=== PATIENT | female | born 1950 | race Caucasian/White ===

== ENCOUNTER 2019-06-27 08:26 | Day surgery (SDC) | payer MEDICARE ==
[~2019-06-27] VITALS: Ht 157.5 cm; Wt 78.7 kg
[~2019-06-27 08:26] MED LIST: Alphagan P5 ML BOTHEYES; DORZOLAMIDE 2%10 ML; Estrace Vagin42.5 GM; Ferrous Sulfat325 M2 PO; METROGEL55 GM; OMEP20ER PO; SERT50 PO; Xalatan2.5 ML RIGHTEYE
== END 2019-06-27 10:29 | disposition home or self-care (01) ==
LOC: ORSCSDS 08:26
PROVIDERS: Internal Medicine Gastroenterology
PROC: 0DB68ZX Excision of Stomach, Via Natural or Artificial Opening Endoscopic, Diagnostic (ICD-10-PCS; principal; 2019-06-27 10:00)
DX: D50.9 Iron deficiency anemia, unspecified (principal); K22.10 Ulcer of esophagus without bleeding; F41.8 Other specified anxiety disorders; E66.9 Obesity, unspecified; Z68.32 Body mass index [BMI] 32.0-32.9, adult; K44.9 Diaphragmatic hernia without obstruction or gangrene; Z79.899 Other long term (current) drug therapy
CPT/HCPCS: 88305; 88342; J2704; J7120

== ENCOUNTER → 2019-08-10 | Outpatient (CLI) | payer MEDICARE | END | disposition home or self-care (01) | LOC: LAB 19:28 → LAB SHORT 19:28 | DX: R30.0 Dysuria (principal) | CPT/HCPCS: 87077; 87086; 87186 ==

== ENCOUNTER → 2024-08-09 | Outpatient (CLI) | payer MEDICARE | LOC: LAB 09:11 → LAB SHORT 09:11 | DX: R39.15 Urgency of urination (principal) | CPT/HCPCS: 87086 ==

== ENCOUNTER 2025-08-07 06:09 | Day surgery (SDC) | payer MEDICARE ==
[~2025-08-07] VITALS: Ht 154.9 cm; Wt 77.4 kg
[2025-08-07] VITALS (15 sets, daily range): BP systolic 98–121; BP diastolic 56–74
[~2025-08-07 06:09] MED LIST changes: +ALEVE220 MG PO; -DORZOLAMIDE 2%10 ML; +LATA.005SO BOTHEYES; +LEVSOD25 PO; +TIMDOROPSO BOTHEYES; -Xalatan2.5 ML RIGHTEYE
[2025-08-07] MEDS ORDERED: Ropivacaine 0.5% HCl/Pf 123.125 MG,EPINEPHrine HCL 0.25 MG,Ketorolac Tromethamine 15 MG... INFIL SCH (06:15)
[2025-08-07] MEDS ORDERED: Chlorhexidine Mouth Care 15 ML UDC MT SCH (06:15)
[2025-08-07] MEDS ORDERED: CeFAZolin Sodium 2,000 MG in NS 100 ML IV SCH ×2 (06:15→16:00)
[2025-08-07] MEDS ORDERED: Tranexamic Acid 100 ML IV SCH (06:15)
--- NOTE | 2025-08-07 07:00 | NUR ---
Ambulatory in Day Surgery History, Chart, Medications and Allergies reviewed before start of procedure. Pre-Op teaching done. Pt verbalizes understanding. Patient States Post-Procedure ride home has been arranged.
[2025-08-07] MEDS ORDERED: Mepivacaine MPF 2% Inj 20 ML Vial ONE (07:13)
[2025-08-07] MEDS ORDERED: HYDROmorphone HCl/Pf 1MG SYR IV PRN ×3 (07:15→08:25)
[2025-08-07] MEDS ORDERED: Magnesium Hydroxide Conc 10 ML UDC PO PRN (07:20)
[2025-08-07] MEDS ORDERED: Ondansetron HCl 2 MG / ML 2ML Vial IV PRN ×2 (07:20→08:25)
[2025-08-07] MEDS ORDERED: Metoclopramide HCl 5MG / ML 2ML Vial IV PRN (07:20)
[2025-08-07] MEDS ORDERED: Midazolam HCl 1MG / ML 2ML Vial ONE (07:26)
[2025-08-07] MEDS ORDERED: FentaNYL Citrate 50 MCG/ML 2 ML Injection ONE (07:27)
[2025-08-07] MEDS ORDERED: Dexamethasone Sod Phos 10 MG/ML 1ML VIAL ONE (07:27)
[2025-08-07] MEDS ORDERED: Ondansetron HCl 2 MG / ML 2ML Vial ONE (07:27)
[2025-08-07] MEDS ORDERED: HYDROmorphone HCl/Pf 1MG SYR ONE (07:33)
[2025-08-07] MEDS ORDERED: FLU VACC TS2025(65UP)/MF59C/PF 45 MCG/0.5 ML SYRINGE IM SCH (07:35)
[2025-08-07] MEDS ORDERED: Ketamine HCl 100 MG / ML 5ML Vial ONE (07:52)
[2025-08-07] MEDS ORDERED: FentaNYL Citrate 50 MCG/ML 2 ML Injection IV PRN ×2 (08:25)
[2025-08-07] MEDS ORDERED: Phenylephrine HCl 100 MCG/ML-NS 10MLSYR (1MG/10ML) ONE (08:30)
[2025-08-07] MEDS ORDERED: Latanoprost 0.005% Opth Soln 2.5 ML BOTHEYES SCH ×2 (09:00→21:00)
[2025-08-07] MEDS ORDERED: Ketorolac Tromethamine 30mg Vial ONE (10:33)
--- NOTE | 2025-08-07 11:19 | NUR ---
PT TO ROOM 220 FROM PACU. POST OP VS STARTED AND STABLE. RATES PAIN 2/10. PT ABLE TO WIGGLE TOES AND LIFT LEG OFF OF BED. PROVIDED WITH WATER AND SNACKS. WILL CONTINUE TO MONITOR.
[2025-08-07] MEDS ORDERED: Ketorolac Tromethamine 15mg Vial IV SCH (12:00)
[2025-08-07] MEDS ORDERED: Dorzolamide/Timolol Opth Soln 10 ML BOTHEYES SCH (21:00)
[2025-08-07] MEDS ORDERED: Timolol 0.5% Opth Soln 5 ML BOTHEYES SCH (21:00)
[2025-08-08 03:30] VITALS: BP 110/55
--- NOTE | 2025-08-08 03:38 | NUR ---
PT REPORTS FEELING BETTER NIGHT HAS PROGRESSED,AMBULATES WITH GAIT BELT,SBA AND WALKER,TOLERATES WELL,KEEPSPOLAR PACK ON WHEN IN BED,TOLERATING PO,VOIDING.
--- NOTE | 2025-08-08 05:45 | NUR ---
SUMMARY PT PLANNING FOR DISCHARGE HOME TODAY. PT REPORTING SHE FEELS DILAUDID IS TOO STRONG AND WISHES TO HAVE RX FOR TRAMADOL HAS HAS HAD THIS BEFORE AND DID WELL ON IT.WILL NOTIFY ONCOMING SHIFT FOR FOLLOW UP
[2025-08-08 06:18] LABS: BASOPHILS ABSOLUTE AUTO 0.01 K/mm3 (0.00-0.23); BASOPHILS PERCENT AUTO 0 % (0-2); EOSINOPHILS ABSOLUTE AUTO 0.00 K/mm3 (0.00-0.68); EOSINOPHILS PERCENT AUTO 0 % (0-6); Hematocrit 31.6 % (33.0-51.0); Hemoglobin 10.2 g/dL (11.5-16.0); IMMATURE GRAN ABSOLUTE AUTO 0.05 K/mm3 (0.00-0.10); IMMATURE GRAN PERCENT AUTO 0 % (0-1); LYMPHOCYTES ABSOLUTE AUTO 0.82 K/mm3 (0.84-5.20); LYMPHOCYTES PERCENT AUTO 6 % (21-46); MONOCYTES ABSOLUTE AUTO 0.80 K/mm3 (0.16-1.47); MONOCYTES PERCENT AUTO 6 % (4-13); Mean Corpuscular HGB Conc 32.3 g/dL (31.5-36.5); Mean Corpuscular Volume 92 fL (80-100); NEUTROPHILS ABSOLUTE AUTO 11.37 K/mm3 (1.96-9.15); NEUTROPHILS PERCENT AUTO 87 % (41-73); NRBC ABSOLUTE 0.00 K/mm3 (0.00-0.02); NRBC Auto 0.0 /100 WBC (0.0-0.2); Platelet Count 206 K/mm3 (150-400); RDW Coefficient Variation 13.2 % (11.7-14.2); RDW Standard Deviation 44.4 fL (35.1-46.3)
[2025-08-08 06:45] LABS: Anion Gap 6.0 mmol/L (3-11); Blood Urea Nitrogen 19.0 mg/dL (8-24); CO2, Blood 26.0 mmol/L (21-32); Calcium, Blood 8.5 mg/dL (8.5-10.1); Chloride, Blood 107.0 mmol/L (98-108); Creatinine, Blood 1.14 mg/dL (0.40-1.00); Glucose, Blood 117.0 mg/dL (70-99); Magnesium, Blood 2.0 mg/dL (1.6-2.4); Potassium, Blood 4.1 mmol/L (3.5-5.5); Sodium, Blood 135.0 mmol/L (136-145)
[2025-08-08 07:27] VITALS: BP 104/51
--- NOTE | 2025-08-08 08:08 | NUR ---
SUMMARY THIS AM PT HAD TAKEN O2 OFF WHICH HAD BEEN 2L AND DESAT TO 88-89PT DOES NOT WEAR O2 AT HOME.ENC PULM TOILET-CDB IS. WITH CDB SATS 90% WITH 2L SATS 95-96% DAY RN AWARE AND AGREES TO FOLLOW UP.
[2025-08-08] MEDS ORDERED: ASPI81CH PO (08:28)
[2025-08-08] MEDS ORDERED: ACET500 PO (08:28)
[2025-08-08] MEDS ORDERED: ONDA4ODT MM (08:29)
--- NOTE | 2025-08-08 10:31 | NUR ---
DC INSTRUCT REVIEWED. STATED UNDERSTANDING. DISHCARGED TO POV WITH PRINTED INSTRUCT, HANDWRITTEN RX TRAMADOL, AND WITH PROVIDED POLAR PACK.
== END 2025-08-08 10:45 | disposition home or self-care (01) ==
LOC: ORSCMMR 06:09 → ORD 07:30 → SURS 10:52 → ORSCMMR 08-08 10:45
PROVIDERS: Orthopaedic Surgery
PROC: 0SRD0J9 Replacement of Left Knee Joint with Synthetic Substitute, Cemented, Open Approach (ICD-10-PCS; principal; 2025-08-07 07:30)
DX: M17.12 Unilateral primary osteoarthritis, left knee (principal); G47.33 Obstructive sleep apnea (adult) (pediatric); K21.9 Gastro-esophageal reflux disease without esophagitis; Z79.899 Other long term (current) drug therapy
CPT/HCPCS: 36415; 73560-LT; 80048; 83735; 85025; 97110; 97116; 97161; 97530; A9270; C1713; C1776; J0166; J0670; J0690; J0735; J1100; J1171; J1885; J2250; J2371; J2405; J2704; J2795; J3010; J7120